=== PATIENT | male | born 1990 | race African-American/Black ===

== ENCOUNTER 2020-06-23 19:28 | Emergency (ER) | payer SELFPAY | END 2020-06-23 19:37 | disposition left against medical advice (07) | DRG 951 | LOC: ED 19:28 → LWOBS 19:36 | DX: Z53.21 Procedure and treatment not carried out due to patient leaving prior to being seen by health care provider (principal) ==

== ENCOUNTER 2020-06-25 17:32 | Emergency (ER) | payer SELFPAY ==
[~2020-06-25] VITALS: Ht 180.3 cm; Wt 69.0 kg
[2020-06-25 19:04] VITALS: BP 114/74
== END 2020-06-25 19:04 | disposition home or self-care (01) | DRG 816 ==
LOC: ED 17:32
DX: I88.9 Nonspecific lymphadenitis, unspecified (principal)